=== PATIENT | female | born 1965 | race Caucasian/White ===

== ENCOUNTER 2018-11-06 15:42 | Emergency (ER) | payer MEDICAID, OTHER ==
[2018-11-06] MEDS: DIPHENHYDRAMINE 50 MG INJ IV (18:00)
[2018-11-06] MEDS: METOCLOPRAMIDE 10 MG INJ IV (18:01)
[2018-11-06] MEDS: KETOROLAC 30 MG INJ IV (18:09)
== END 2018-11-06 19:06 | disposition home or self-care (01) ==
LOC: FTE 15:42
DX: R51 Headache (principal); I10 Essential (primary) hypertension; Z79.82 Long term (current) use of aspirin
CPT/HCPCS: 81025; 93005; 96374; 96375; 99284-25